=== PATIENT | female | born 1945 | race Caucasian/White ===

== ENCOUNTER 2018-07-09 11:07 | Emergency (ER) | payer OTHER, MEDICARE ==
[2018-07-09 12:44] LABS: ABSOLUTE EOSINOPHILS # (AUTO) 0.2 10^3/uL (0.0-0.6); ABSOLUTE MONOCYTES (AUTO) 0.4 10^3/uL (0.1-1.4); ABSOLUTE NEUT (AUTO) 3.3 10^3/uL (1.7-8.2); BASOPHILS % (AUTO) 0.8 % (0-2); EOSINOPHILS % (AUTO) 4.4 % (0-6); HEMATOCRIT 42.3 % (36.0-47.0); LYMPHOCYTES % (AUTO) 20.5 % (13-45); MEAN CORPUSCULAR HEMOGLOBIN 30.8 pg (27.0-33.4); MEAN CORPUSCULAR HGB CONC 33.1 g/dL (32.0-36.0); MEAN CORPUSCULAR VOLUME 93 fl (80-97); MONOCYTES % (AUTO) 7.7 % (3-13); PLATELET COUNT 229 10^3/uL (150-450); RED BLOOD COUNT 4.55 10^6/uL (3.72-5.28); RED CELL DISTRIBUTION WIDTH 14.2 % (11.5-14.0); SEGMENTED NEUTROPHILS % (AUTO) 66.6 % (42-78); TOTAL CELLS COUNTED % (AUTO) 100 %
[2018-07-09 12:51] LABS: ALANINE AMINOTRANSFERASE 32 U/L (9-52); ALBUMIN 4.3 g/dL (3.5-5.0); ALKALINE PHOSPHATASE 74 U/L (38-126); ANION GAP 9 (5-19); ASPARTATE AMINO TRANSFERASE 48 U/L (14-36); BILIRUBIN,DIRECT 0.3 mg/dL (0.0-0.4); BILIRUBIN,TOTAL 0.8 mg/dL (0.2-1.3); BLOOD UREA NITROGEN 18 mg/dL (7-20); CALCIUM 9.3 mg/dL (8.4-10.2); CARBON DIOXIDE 30 mmol/L (22-30); CHLORIDE 104 mmol/L (98-107); CREATINE KINASE 108 U/L (30-135); GLUCOSE 80 mg/dL (75-110); POTASSIUM 3.7 mmol/L (3.6-5.0); SODIUM 143.4 mmol/L (137-145); TOTAL PROTEIN 7.8 g/dL (6.3-8.2)
[2018-07-09 12:59] LABS: CREATINE KINASE MB 0.58 ng/mL (<4.55)
[2018-07-09 13:00] LABS: TROPONIN I < 0.012 ng/mL
[2018-07-09 13:40] LABS: APPEARANCE,URINE CLEAR; BILIRUBIN,URINE NEGATIVE (NEGATIVE); COLOR,URINE YELLOW; GLUCOSE, URINE NEGATIVE (NEGATIVE); KETONES,URINE NEGATIVE (NEGATIVE); LEUKOCYTE ESTERASE,URINE NEGATIVE (NEGATIVE); NITRITE,URINE NEGATIVE (NEGATIVE); PROTEIN,URINE NEGATIVE (NEGATIVE); URINE SPECIFIC GRAVITY 1.017
[2018-07-09] MEDS ORDERED: MECLIZINE HCL 25 MG TABLET PO ONE (14:18)
--- NOTE | 2018-07-09 15:00 | RADIOLOGY REPORT (SQ) ---
EXAM DESCRIPTION: CT HEAD WITHOUT COMPLETED DATE/TIME: 07/09/2018 2:38 pm REASON FOR STUDY: fall COMPARISON: None. TECHNIQUE: Axial images acquired through the brain without intravenous contrast. Images reviewed wi th bone, brain and subdural windows. Additional sagittal and coronal reconstructions were generated. Images stored on PACS. All CT scanners at this facility use dose modulation, iterative reconstruction, and/or weight based d osing when appropriate to reduce radiation dose to as low as reasonably achievable (ALARA). [facility]: Dose Right [facility]: CareDose [facility]: Dose Right [facility]: Teradose 4D [facility]: [address] RADIATION DOSE: CT Rad equipment meets quality standard of care and radiation dose reduction techniq ues were employed. CTDIvol: 53.2 mGy. DLP: 964 mGy-cm. mGy. LIMITATIONS: None. FINDINGS: VENTRICLES: Normal size and contour. CEREBRUM: No masses. No hemorrhage. No midline shift. No evidence for acute infarction. Normal gra y/white matter differentiation. No areas of low density in the white matter. CEREBELLUM: No masses. No hemorrhage. No alteration of density. No evidence for acute infarction. EXTRAAXIAL SPACES: No fluid collections. No masses. ORBITS AND GLOBE: No intra- or extraconal masses. Normal contour of globe without masses. CALVARIUM: No fracture. PARANASAL SINUSES: No fluid or mucosal thickening. SOFT TISSUES: No mass or hematoma. OTHER: No other significant finding. IMPRESSION: NORMAL BRAIN CT WITHOUT CONTRAST. EVIDENCE OF ACUTE STROKE: NO. COMMENT: Quality ID # [id number]: Final reports with documentation of one or more dose reduction techniques (e.g., Automated exposure control, adjustment of the mA and/or kV according to patient size, use of iterative reconstruction technique) TECHNICAL DOCUMENTATION: JOB ID: [id number] [employer]- All Rights Reserved Reading location - IP/workstation name: [email or web address]
--- NOTE | 2018-07-09 15:01 | RADIOLOGY REPORT (SQ) ---
EXAM DESCRIPTION: CHEST 2 VIEWS COMPLETED DATE/TIME: 07/09/2018 2:46 pm REASON FOR STUDY: fall COMPARISON: 10/19/2007 NUMBER OF VIEWS: Two view. TECHNIQUE: Frontal and lateral radiographic views of the chest acquired. LIMITATIONS: None. FINDINGS: LUNGS AND PLEURA: No opacities, masses or pneumothorax. No pleural effusion. Attenuated bl ood vessels and flattened kenny-diaphragms. MEDIASTINUM AND HILAR STRUCTURES: No masses. No contour abnormalities. HEART AND VASCULAR STRUCTURES: Heart normal in size and contour. No evidence for failure. BONES: No acute findings. HARDWARE: None in the chest. OTHER: No other significant finding. IMPRESSION: COPD. NO ACUTE RADIOGRAPHIC FINDING IN THE CHEST. TECHNICAL DOCUMENTATION: JOB ID: [id number] [employer]- All Rights Reserved Reading location - IP/workstation name: [email or web address]
--- NOTE | 2018-07-09 15:51 | ER Document Report ---
ED General - General Chief Complaint: Dizziness Stated Complaint: DIZZY Time Seen by Provider: 07/09/18 12:17 TRAVEL OUTSIDE OF THE [place] IN LAST 30 DAYS: No - HPI Patient complains to provider of: Dizziness Notes: Patient coming in for evaluation of dizziness patient states he became dizzy Wednesday while watching her gardening and fell. Patient otherwise states slight dizziness whenever changing position. Patient denies any fever chills nausea vomiting diarrhea states she did hit her head however is unaware of any loss of consciousness. Patient states now she is more less sore in the occipital region of her head. Patient resting comfortably upon my evaluation. - Related Data Allergies/Adverse Reactions: celecoxib [From Celebrex] Allergy (Mild, Verified 07/09/18 11:10) RASH Past Medical History - Social History Smoking Status: Never Smoker Chew tobacco use (# tins/day): No Frequency of alcohol use: None Drug Abuse: None Family History: Reviewed & Not Pertinent Patient has suicidal ideation: No Patient has homicidal ideation: No - Past Medical History Cardiac Medical History: Denies: Hx Heart Attack, Hx Hypertension Pulmonary Medical History: Denies: Hx Asthma Neurological Medical History: Denies: Hx Cerebrovascular Accident, Hx Seizures Renal/ Medical History: Denies: Hx Peritoneal Dialysis GI Medical History: Reports: Hx Hepatitis - HEPATITIS A. Denies: Hx Hiatal Hernia, Hx Ulcer Infectious Medical History: Reports: Hx Hepatitis - HEPATITIS A Past Surgical History: Reports: Hx Section - X4. Denies: Hx Hysterectomy, Hx Mastectomy, Hx Open Heart Surgery, Hx Pacemaker Review of Systems - Review of Systems Constitutional: No symptoms reported EENT: No symptoms reported Cardiovascular: Dizziness Respiratory: No symptoms reported Gastrointestinal: No symptoms reported Genitourinary: No symptoms reported Female Genitourinary: No symptoms reported Musculoskeletal: No symptoms reported Skin: No symptoms reported Hematologic/Lymphatic: No symptoms reported Neurological/Psychological: No symptoms reported -: Yes All other systems reviewed and negative Physical Exam - Vital signs Vitals: Temp Pulse Resp BP Pulse Ox 98.7 F 85 14 121/59 L 97 07/09/18 11:17 07/09/18 11:17 07/09/18 11:17 07/09/18 11:17 07/09/18 11:17 Interpretation: Normal - General General appearance: Appears well, Alert - HEENT Head: Normocephalic, Atraumatic Eyes: Normal Pupils: PERRL - Respiratory Respiratory status: No respiratory distress Chest status: Nontender Breath sounds: Normal Chest palpation: Normal - Cardiovascular Rhythm: Regular Heart sounds: Normal auscultation Murmur: No - Abdominal Inspection: Normal Distension: No distension Bowel sounds: Normal Tenderness: Nontender Organomegaly: No organomegaly - Back Back: Normal, Nontender - Extremities General upper extremity: Normal inspection, Nontender, Normal color, Normal ROM , Normal temperature General lower extremity: Normal inspection, Nontender, Normal color, Normal ROM , Normal temperature, Normal weight bearing. No: Shannan's sign - Neurological Neuro grossly intact: Yes Cognition: Normal Orientation: AAOx4 [place] Coma Scale Eye Opening: Spontaneous [place] Coma Scale Verbal: Oriented [place] Coma Scale Motor: Obeys Commands [place] Coma Scale Total: 15 Speech: Normal Motor strength normal: LUE, RUE, LLE, RLE Sensory: Normal - Psychological Associated symptoms: Normal affect, Normal mood - Skin Skin Temperature: Warm Skin Moisture: Dry Skin Color: Normal Course - Re-evaluation Re-evalutation: 07/09/18 15:48 No critical pathology seen in patients evaluation laboratory studies or x-rays. Patient will be discharged on follow-up primary care physician. Patient's will be given a prescription for meclizine in case there is a possible vertigo component to her dizziness. Patient was encouraged to drink plenty water to stay hydrated. - Vital Signs Vital signs: Temp Pulse Resp BP Pulse Ox 98.7 F 83 17 118/65 94 07/09/18 11:17 07/09/18 12:59 07/09/18 12:39 07/09/18 13:01 07/09/18 13:01 - Laboratory Result Diagrams: 07/09/18 12:15 07/09/18 12:15 Laboratory results interpreted by me: 07/09/18 07/09/18 07/09/18 12:15 12:15 13:05 RDW 14.2 H AST 48 H Urine Blood SMALL H Urine Urobilinogen 2.0 H Discharge - Discharge Clinical Impression: Dizziness Condition: Good Disposition: HOME, SELF-CARE Instructions: Dizziness ([facility]), Meclizine ([facility]), Vertigo ([facility]) Additional Instructions: Head CT chest x-ray and laboratory values not show any the pathology or reason for your dizziness and fall. Would recommend water and fluids containing electrolytes to stay hydrated. I will give you a prescription for meclizine. If your dizziness is possible because of underlying vertigo the meclizine should aid in her symptoms. At this time your evaluation does not reveal any critical pathology or specific reasons for your dizziness. It is very important to follow with her primary care physician return to the ER if symptoms worsen. Prescriptions: Meclizine HCl [Antivert 25 mg Tablet] 25 mg PO TID PRN #21 tablet PRN Reason: Referrals: JILLIAN CAMPBELL MD [Primary Care Provider] - Follow up as needed
[2018-07-09 16:08] VITALS: BP 115/66
--- NOTE | 2018-07-09 17:13 | EKG REPORT ---
SEVERITY:- ABNORMAL ECG - SINUS RHYTHM MULTIPLE VENTRICULAR PREMATURE COMPLEXES CONSIDER ANTEROSEPTAL INFARCT : Confirmed by: Alan Dumont MD 09-Jul-2018 17:12:54
== END 2018-07-09 16:11 | disposition home or self-care (01) ==
LOC: ER 11:07
DX: R42 Dizziness and giddiness (principal); Z88.8 Allergy status to other drugs, medicaments and biological substances
CPT/HCPCS: 36415; 70450; 71046; 80053; 81001; 82550; 82553; 83690; 84484; 85025; 93005; 93010; 99285

== ENCOUNTER 2019-04-09 19:56 | Emergency (ER) | payer MEDICARE ==
--- NOTE | 2019-04-09 20:35 | ER Document Report ---
ED Medical Screen (RME) - General Chief Complaint: Leg Pain Stated Complaint: LEFT LEG INJURY Time Seen by Provider: 04/09/19 20:23 Primary Care Provider: JILLIAN CAMPBELL MD [Primary Care Provider] - Follow up as needed Mode of Arrival: Wheelchair Information source: Patient, Relative Notes: Patient presents emergency department with complaints of left lower leg pain. Patient reports she has been on levofloxacin tablets for 10 days for pneumonia, off for one week. Reports her left leg had been sore. She reports she was come down some steps today and she heard 4 pops now her left leg is painful. no Erythema swelling or warmth. Patient is able to flex and extend her foot. She does report pain and trouble walking. She denies all other symptoms such as fever vomiting diarrhea. Reports her cough is almost gone. I have greeted and performed a rapid initial assessment of this patient. A comprehensive ED assessment and evaluation of the patient, analysis of test results and completion of the medical decision making process will be conducted by additional ED providers. Dictation of this chart was performed using voice recognition software; therefore, there may be some unintended grammatical errors. TRAVEL OUTSIDE OF THE [place] IN LAST 30 DAYS: No - Related Data Allergies/Adverse Reactions: celecoxib [From Celebrex] Allergy (Mild, Verified 07/09/18 11:10) RASH Past Medical History - Past Medical History Cardiac Medical History: Denies: Hx Heart Attack, Hx Hypertension Pulmonary Medical History: Denies: Hx Asthma Neurological Medical History: Denies: Hx Cerebrovascular Accident, Hx Seizures Renal/ Medical History: Denies: Hx Peritoneal Dialysis GI Medical History: Reports: Hx Hepatitis - HEPATITIS A. Denies: Hx Hiatal Hernia, Hx Ulcer Infectious Medical History: Reports: Hx Hepatitis - HEPATITIS A Past Surgical History: Reports: Hx Section - X4. Denies: Hx Hysterectomy, Hx Mastectomy, Hx Open Heart Surgery, Hx Pacemaker Physical Exam - Vital signs Vitals: Temp Pulse Resp BP Pulse Ox 97.9 F 73 15 113/59 L 97 04/09/19 20:05 04/09/19 20:05 04/09/19 20:05 04/09/19 20:05 04/09/19 20:05 Course - Vital Signs Vital signs: Temp Pulse Resp BP Pulse Ox 97.9 F 73 15 113/59 L 97 04/09/19 20:05 04/09/19 20:05 04/09/19 20:05 04/09/19 20:05 04/09/19 20:05 Doctor's Discharge - Discharge Referrals: JILLIAN CAMPBELL MD [Primary Care Provider] - Follow up as needed
--- NOTE | 2019-04-09 23:04 | ER Document Report ---
ED Extremity Problem, Lower - General Chief Complaint: Leg Pain Stated Complaint: LEFT LEG INJURY Time Seen by Provider: 04/09/19 20:23 Primary Care Provider: HOLLI CHUNG MD [NO LOCAL MD] - 04/10/19 Mode of Arrival: Wheelchair Information source: Patient, Relative Notes: 73-year-old female presented to ED for complaint of left knee and lower leg pain since she was at a today and she heard several loud pops in her left knee. She states she has had pain to both knees on March 16 when she saw her doctor. She states was given levofloxacillin for 10 days for pneumonia. She states she is been off for about a week. She states when she had a little loud pops and the pain in her knee today after the she was reading the side effects from the levofloxacin and saw that is stated she could have torn tendons from the medication and became very concerned. She also states she went on a trip to [place] and road in the car but was moving constantly on the way there and back. She states she walks a lot while she was in [place] and her pain steadily progressed while she was in [place]. She states today when she was at a she went up a few steps to give a "talk". She states the knee hurt going up the stairs but there was a loud pop when she came down the stairs and she has not been able to walk since loud pop. There is no redness or swelling or warmth noted. Patient is able to flex and extend her knee and foot. She states she is not able to walk due to the pain in her knee and just below her knee. She denies any nausea vomiting or diarrhea. She does have bruises to both knees where she got injections at the primary care doctor's office because before going to [place]. She states her cough is almost gone. TRAVEL OUTSIDE OF THE [place] IN LAST 30 DAYS: No - HPI Patient complains to provider of: Pain Location: Knee Occurred: Other - See HPI Onset/Duration: Intermittent Quality of pain: Burning - When she walks, Sharp - When she walks Severity: None - She states there is no pain when she is not walking someone is not touching it Context: Other - Popping sound when going up and down the stairs Recent injury: Possibly Associated symptoms: Carver a pop, Unable to bear weight Exacerbated by: Movement, Walking Relieved by: Rest - Related Data Allergies/Adverse Reactions: celecoxib [From Celebrex] Allergy (Mild, Verified 07/09/18 11:10) RASH Past Medical History - General Information source: Patient, Relative - Social History Smoking Status: Never Smoker Chew tobacco use (# tins/day): No Frequency of alcohol use: None Drug Abuse: None Lives with: Family Family History: Reviewed & Not Pertinent Patient has suicidal ideation: No Patient has homicidal ideation: No - Past Medical History Cardiac Medical History: Reports: None Pulmonary Medical History: Reports: None EENT Medical History: Reports: None Neurological Medical History: Reports: None Endocrine Medical History: Reports: None Renal/ Medical History: Reports: None Malignancy Medical History: Reports: None GI Medical History: Reports: Hx Hepatitis - HEPATITIS A Musculoskeletal Medical History: Reports Hx Arthritis Skin Medical History: Reports None Psychiatric Medical History: Reports: None Traumatic Medical History: Reports: None Infectious Medical History: Reports: Hx Hepatitis - HEPATITIS A Past Surgical History: Reports: Hx Section - X4 - Immunizations Immunizations up to date: Yes Hx Diphtheria, Pertussis, Tetanus Vaccination: Yes Review of Systems - Review of Systems Constitutional: No symptoms reported EENT: No symptoms reported Cardiovascular: No symptoms reported Respiratory: No symptoms reported Gastrointestinal: No symptoms reported Genitourinary: No symptoms reported Female Genitourinary: No symptoms reported Musculoskeletal: Joint pain. denies: Joint swelling Skin: No symptoms reported Hematologic/Lymphatic: No symptoms reported Neurological/Psychological: No symptoms reported -: Yes All other systems reviewed and negative Physical Exam - Vital signs Vitals: Temp Pulse Resp BP Pulse Ox 97.9 F 73 15 113/59 L 97 04/09/19 20:05 04/09/19 20:05 04/09/19 20:05 04/09/19 20:05 04/09/19 20:05 Interpretation: Normal - General General appearance: Appears well, Alert - HEENT Head: Normocephalic, Atraumatic Eyes: Normal Pupils: PERRL - Respiratory Respiratory status: No respiratory distress Chest status: Nontender Breath sounds: Normal Chest palpation: Normal - Cardiovascular Rhythm: Regular Heart sounds: Normal auscultation Murmur: No - Abdominal Inspection: Normal Distension: No distension Bowel sounds: Normal Tenderness: Nontender Organomegaly: No organomegaly - Back Back: Normal, Nontender - Extremities General upper extremity: Normal inspection, Nontender, Normal color, Normal ROM, Normal temperature General lower extremity: Normal inspection, Nontender, Normal color, Normal ROM, Normal temperature, Normal weight bearing. No: Shannan's sign - Neurological Neuro grossly intact: Yes Cognition: Normal Orientation: AAOx4 Moun[place] Coma Scale Eye Opening: Spontaneous [place] Coma Scale Verbal: Oriented [place] Coma Scale Motor: Obeys Commands [place] Coma Scale Total: 15 Speech: Normal Motor strength normal: LUE, RUE, LLE, RLE Sensory: Normal - Psychological Associated symptoms: Normal affect, Normal mood - Skin Skin Temperature: Warm Skin Moisture: Dry Skin Color: Normal Course - Re-evaluation Re-evalutation: 04/10/19 02:16 D-dimer, x-rays, ultrasound all discussed with patient and family and written reports given to the family for follow-up with primary care. Patient was treated with in the immobilizer. Ultrasound did show a Ramirez's cyst x-rays were negative d-dimer was negative. Patient refused medication throughout her stage. She states her pain was not needed bad enough that she needed pain medications the only time she had pain was when she got up and tried to walk. Patient stated she would follow-up with primary care doctor tomorrow. - Vital Signs Vital signs: Temp Pulse Resp BP Pulse Ox 97.9 F 73 15 113/59 L 97 04/09/19 20:05 04/09/19 20:05 04/09/19 20:05 04/09/19 20:05 04/09/19 20:05 - Diagnostic Test Radiology reviewed: Image reviewed, Reports reviewed Procedures - Immobilization Left Knee Time completed: 01:53 Immobilizer type: Knee immobilizer Performed by: PCT Post-Proc Neuro Vasc Exam: Normal Alignment checked and good: Yes Discharge - Discharge Clinical Impression: Posterior left knee pain Ramirez cyst Qualifiers: Laterality: left Qualified Code(s): M71.22 - Synovial cyst of popliteal space [Ramirez], left knee Condition: Stable Disposition: HOME, SELF-CARE Additional Instructions: Ramirez's Cyst A Ramirez's cyst is a sack of fluid behind the knee. These cysts are common in people with arthritis or old knee injuries. Fluid in the knee joint creates a bulging sack in the "capsule" surrounding the joint. The cyst may start to hurt after activity such as squatting, running, or stair-climbing. Fluid trapped in this sack causes pain and swelling. The swelling from a Ramirez's cyst tends to spread down the leg. The lower leg can become red and warm. Rest your knee. Avoid activities such as squatting, lifting, climbing, and running. A knee brace may help you rest the knee. If the pain began suddenly while using the leg, use cold packs for the first two days to reduce pain and swelling. If the knee has been painful for a few days, use warm packs. Anti- inflammatory medicine is often prescribed. Once the pain has improved, gradually return to activity. Exercises to strengthen the quadriceps muscle can make the knee more stable, but you must be careful not to irritate the cyst while exercising. Call the doctor or return if you have increasing swelling or redness, fever, chills, chest pain, or shortness of breath. KNEE IMMOBILIZING SPLINT: The knee immobilizing splint will protect the injury while healing begins. This type of splint does not allow the knee to bend at all. No running or sports will be possible. If the splint allows painfree walking, it's giving adequate protection. If there is still significant pain, crutches may be needed as well. Don't do anything that hurts. Adjusted the splint, if necessary. The stiffeners on the sides are attached with Velcro, so they can be easily moved to adjust for thigh and calf size. If you need help with these adjustments, come back. You will lose muscle strength in the thigh while using this splint. The doctor will advise you if it's safe to do isometric knee exercises while you use it. ICE & ELEVATION: Apply ice packs frequently against the painful area. Many different schedules are recommended, such as "20 minutes on, 20 minutes off" or "one hour ice, two hours rest." If you need to work, you may need to go longer between ice treatments. You should plan to have the area ice packed AT LEAST one-fourth of the time. The ice should be applied over the wrap, tape, or splint, or over a layer of cloth -- not directly against the skin. Some ice bags have a built-in cloth and can be put directly on the skin. Your injured part should be elevated as much as possible over the next 48 hours. Try to keep the injury above the level of the heart. Avoid use of the injured area. Elevation and rest will decrease the swelling. USE OF [id number] IBUPROFEN: Ibuprofen (Advil, Nuprin, Medipren, Motrin IB) is a medication for fever and pain control. In addition, it has anti- inflammatory effects which may be beneficial, especially in the treatment of injuries. It's best to take ibuprofen with food. Persons with ulcer disease or allergy to aspirin should notify their physician of this before taking ibuprofen. Ibuprofen can be given every four to six hours, for a total of four doses daily. Age Pain or fever dose Antiinflammatory dose 6-8 yr 200 mg (1 tab) 200 mg (1 tab) 9-11 yr 200 mg (1 tab) 200-400 mg (1-2 tab) 11-14 yr 200-400 mg (1-2 tab) 400 mg (2 tab) 15-adult 400 mg (2 tab) 600 mg (3 tab) FOLLOW-UP CARE: If you have been referred to a physician for follow-up care, call the physicians office for an appointment as you were instructed or within the next two days. If you experience worsening or a significant change in your symptoms, notify the physician immediately or return to the Emergency Department at any time for re-evaluation. Referrals: HOLLI CHUNG MD [NO LOCAL MD] - 04/10/19
--- NOTE | 2019-04-10 00:05 | RADIOLOGY REPORT (SQ) ---
4 VIEWS OF LEFT KNEE HISTORY: Joint pain. COMPARISON: None. FINDINGS: Generalized osteopenia is present. No acute fracture, dislocation, or knee effusion. Mild soft tissue swelling is seen. IMPRESSION: No acute fracture or malalignment.
--- NOTE | 2019-04-10 01:27 | RADIOLOGY REPORT (SQ) ---
US EXTREMITY MUSCULOSKELETAL LIMITED HISTORY: Left knee pain. Evaluate for tendon rupture. COMPARISON: Knee radiographs from same day. TECHNIQUE: Yates-scale and color Doppler images of the left knee were obtained. FINDINGS: In the medial aspect of the left popliteal fossa, there is a 5.3 x 2.3 x 3.2 cm well encapsulated fluid collection with internal echogenic debris. No color Doppler blood flow is seen within the collection. The surrounding musculature has normal echogenicity. IMPRESSION: 5.3 cm fluid collection in the medial aspect of the left popliteal fossa, which most likely represents a complex Ramirez's cyst. However, if there is high concern for acute tendon injury, consider MRI.
[2019-04-10 02:19] VITALS: BP 118/63
== END 2019-04-10 02:18 | disposition home or self-care (01) ==
LOC: ER 19:56
DX: M71.22 Synovial cyst of popliteal space [Baker], left knee (principal); M25.562 Pain in left knee; M79.662 Pain in left lower leg; Z88.8 Allergy status to other drugs, medicaments and biological substances
CPT/HCPCS: 99284; 36415; 85379; 73564; 76882; L1830

== ENCOUNTER → 2019-04-13 | Outpatient (CLI) | payer MEDICARE ==
--- NOTE | 2019-04-13 13:22 | RADIOLOGY REPORT (SQ) ---
EXAM DESCRIPTION: MRI LT LOWER JOINT WITHOUT COMPLETED DATE/TIME: 04/13/2019 12:48 pm REASON FOR STUDY: LEFT KNEE PAIN (M25.562) M25.562 PAIN IN LEFT KNEE COMPARISON: None. TECHNIQUE: Leftknee images acquired and stored on PACS. Multiplanar images include fat sensitive se quences as T1, water sensitive sequences as FST2 or STIR, cartilage sensitive sequences as FSPD, and gradient echo sequences. LIMITATIONS: Motion. FINDINGS: JOINT AND BURSAE: Small effusion. BONE CORTEX AND MARROW: No alteration of signal to suggest marrow replacement. No worrisome bone lesi ons. No occult fracture. ACL: Intact. No degeneration or ganglion cyst. PCL: Intact. MCL: Intact. No periligamentous edema or fluid. LCL: Intact. No periligamentous edema or fluid. MEDIAL MENISCUS: Abnormal high signal in the horizontal plane posterior horn extending to the posteri or root and body. LATERAL MENISCUS: Intact. MEDIAL COMPARTMENT: Mild osteoarthritic changes. No subchondral edema. LATERAL COMPARTMENT: Mild osteoarthritic changes. No subchondral edema. PATELLA: High riding patella. Moderate osteoarthritis. Intact retinaculum. EXTENSOR MECHANISM: Intact. Quadriceps and patella tendons normal. SOFT TISSUES: Large Ramirez's cyst. OTHER: No other significant finding. IMPRESSION: 1. Large tear posterior horn medial meniscus. 2. Small effusion. 3. Tricompartment osteoarthritis. 4. Large Ramirez's cyst. TECHNICAL DOCUMENTATION: JOB ID: [id number] [employer]- All Rights Reserved Reading location - IP/workstation name: [email or web address]
== END ==
LOC: RAD 12:03
PROVIDERS: ATTEND Family Medicine
DX: S83.242A Other tear of medial meniscus, current injury, left knee, initial encounter (principal); M17.12 Unilateral primary osteoarthritis, left knee; M71.22 Synovial cyst of popliteal space [Baker], left knee; X58.XXXA Exposure to other specified factors, initial encounter